=== PATIENT | male | born 1985 | race Two or more races ===

== ENCOUNTER 2024-02-04 02:46 | Emergency (ER) | payer OTHER ==
[~2024-02-04] VITALS: Ht 182.9 cm; Wt 86.2 kg
[2024-02-04 02:50] VITALS: BP 138/93; TEMP 98.1
[2024-02-04] MEDS ORDERED: ACETAMINOPHEN ES 500 MG TABLET ONE (03:12)
[2024-02-04] MEDS ORDERED: CEPHALEXIN MONOHYDRATE 500 MG CAPSULE PO ONE (03:12)
[2024-02-04] MEDS ORDERED: IBUP-1957 PO (03:13)
[2024-02-04] MEDS ORDERED: IBUPROFEN 400 MG TABLET ONE (03:13)
[2024-02-04] MEDS ORDERED: SULF1TAB48 PO (03:13)
[2024-02-04] MEDS ORDERED: ACET-73 PO (03:13)
[2024-02-04] MEDS ORDERED: SULFAMETH/TRIMETH 800/160 MG 1 UDTAB TABLET ONE (03:13)
[2024-02-04] MEDS ORDERED: CEPH500C2 PO (03:13)
[2024-02-04] MEDS: SULFAMETH/TRIMETH 800/160 MG 1 UDTAB TABLET PO ONE (03:15)
[2024-02-04] MEDS: CEPHALEXIN MONOHYDRATE 500 MG CAPSULE PO ONE (03:15)
[2024-02-04] MEDS: ACETAMINOPHEN ES 500 MG TABLET PO ONE (03:16)
[2024-02-04] MEDS: IBUPROFEN 400 MG TABLET PO ONE (03:16)
[2024-02-04 05:50] VITALS: O2SAT 100
== END 2024-02-04 05:53 | disposition home or self-care (01) ==
LOC: ER 02:47
DX: L03.116 Cellulitis of left lower limb (principal); Z59.00 Homelessness unspecified